=== PATIENT | male | born 1985 | race Hispanic/Latino ===

== ENCOUNTER 2019-10-26 13:16 | Emergency (ER) | payer BC, SELFPAY ==
--- NOTE | 2019-10-26 14:40 | RAD ---
EXAM: 3 views of the right hand COMPARISON: None HISTORY: Injury to the right hand with a fishhook FINDINGS: 3 views of the hand shows no evidence of acute fracture or dislocation. No degenerative sharath nges are seen. 2 fish hooks are seen along the dorsal soft tissues of the right hand. No soft tissue swelling is present. IMPRESSION: Fish hooks along the dorsal soft tissues of the hand
[2019-10-26] MEDS ORDERED: Lidocaine 2% PF 5 ML VIAL ONE (14:44)
[2019-10-26] MEDS ORDERED: Lidocaine 1% PF 5 ML VIAL ONE (14:45)
== END 2019-10-26 15:00 | disposition home or self-care (01) ==
LOC: ERS 13:16
DX: S61.441A Puncture wound with foreign body of right hand, initial encounter (principal); W26.9XXA Contact with unspecified sharp object(s), initial encounter
CPT/HCPCS: 10120; J2001

== ENCOUNTER 2020-06-12 07:46 | Outpatient (CLI) | payer OTHER ==
--- NOTE | 2020-06-12 09:19 | MRI ---
MRI RIGHT KNEE WITHOUT CONTRAST: HISTORY: Fall. Twisting injury. COMPARISON: None. FINDINGS: MEDIAL MENISCUS: Mild intrameniscal degeneration of the body and posterior horn of the nondisplaced undersurface obliq ue tear posterior horn and body junction. No displacement of fibers. The root is intact. LATERAL MENISCUS: Intact. ACL and PCL are intact. The MCL proper is intact. EXTENSOR MECHANISM: There is a high-grade tear of the medial patellofemoral ligament from the medial patellar facets with out an osseous avulsion appreciated. Lateral patellar subluxation. There is contusion of the latera l femoral condyle superarticular surface as well as the medial patellar facet. High-grade trochlear dysplasia with elongation of the lateral patellar facet and small medial patella r facet. There is mild lengthening of the lateral 1/3 proximal 2 cm patellar tendon. High-grade sup ralateral Hoffa's pad edema. The tibial tuberosity-trochlear groove distance measures 19 mm. There is a very small cortical avulsion of the medial patellar facet on the anterior cortex without d efinite cartilage involvement. CARTILAGE: PATELLOFEMORAL COMPARTMENT: Full-thickness cartilage denuding along the superior lateral patellar facet with smooth margins ind icating chronicity. This is not acute osteochondral defect. Some high-grade chondral fissures of th e medial patellar facet. The lateral trochlear has some high-grade chondral wear. MEDIAL COMPARTMENT: Intact. LATERAL COMPARTMENT: There are a few 50% chondral fissures of the central weightbearing surface lateral tibial plateau wit hout full-thickness defect. SOFT TISSUES: There is a moderate to large joint effusion. Extensive soft tissue swelling anteriorly along the kne e. MUSCLES: Low-grade strain of the vastus medialis and lateralis muscles. IMPRESSION: 1. Reduced transient lateral patellar dislocation with contusions of the medial patellar facet and l ateral femoral condyle, ruptured medial patellofemoral ligament from medial patellar facet with small osseous avulsion measuring 3 x 4 mm on the anterior cortex away from the cartilage, and high-grade t rochlear dysplasia. 2. Complete chondral wear along the superior of the patella and lateral patellar facet. There is evidence of chronic patellar tracking with trochlear dysplasia, supralateral Hoffa's fat pad edema, a s well as thickened elongated lateral patellar retinaculum and vastus lateralis fascia. 3. Low-grade undersurface oblique tear posterior horn body junction and medial meniscus with some mi nimal medius degeneration/tracking of fluid in the medial meniscal body. No gutter extrusion. 4. Intact cruciate ligaments. 5. Intact medial collateral ligament proper. 6. Trochlear dysplasia with decreased trochlear depth, lateral patellar subluxation and decreased t rochlear inclination,. POS: OFF
== END 2020-06-12 07:47 | disposition home or self-care (01) ==
LOC: TBSIIMAG 07:46
PROVIDERS: ATTEND Family Medicine
DX: M23.91 Unspecified internal derangement of right knee (principal); S83.004A Unspecified dislocation of right patella, initial encounter; S76.111A Strain of right quadriceps muscle, fascia and tendon, initial encounter